=== PATIENT | female | born 2000 | race Caucasian/White ===

== ENCOUNTER 2018-12-14 17:38 | Emergency (ER) | payer MEDICAID ==
[2018-12-14 17:52] VITALS: O2SAT 100
[2018-12-14 19:02] LABS: Appearance SLIGHTLY CLOUDY (CLEAR); Bacteria RARE /HPF (NEGATIVE); Bilirubin NEGATIVE (NEGATIVE); Blood NEGATIVE Ery/ul (0-5); Epithelial Cells RARE /HPF (FEW); Glucose NEGATIVE (NEGATIVE); Ketones NEGATIVE (NEGATIVE); Leukocyte Esterase TRACE (NEGATIVE); Mucus SLIGHT /HPF (NEGATIVE); Nitrite NEGATIVE (NEGATIVE); Protein,Urine Dip NEGATIVE (Negative); Specific Gravity 1.025 (1.005-1.025); Urobilinogen NEGATIVE mg/dL (0-1)
[2018-12-14 19:06] LABS: ALBUMIN 4.1 g/dL (3.5-5.0); ALKALINE PHOSPHATASE 53 U/L (38-126); AMYLASE 54 U/L (30-110); ANION GAP 12.3 MEQ/L (5-15); BLOOD UREA NITROGEN 19 mg/dL (7-17); CHLORIDE 103 mmol/L (98-107); Calcium 9.2 mg/dL (8.4-10.2); Carbon Dioxide 26 mmol/L (22-30); Creatinine 1 0.88 mg/dL (0.52-1.04); Glucose 78 mg/dL (74-106); LIPASE 138 U/L (23-300); Potassium 3.9 mmol/L (3.5-5.1); SGOT/AST 24 U/L (14-36); SGPT/ALT 18 U/L (0-35); SODIUM 137 mmol/L (137-145); Total Protein 7.4 g/dL (6.3-8.2)
[2018-12-14 19:09] LABS: BASOPHIL % 0.5 % (0.0-0.4); Basophil (Absolute #) 0.04 (0-0.4); Eosinophil % 3.6 % (0.00-5.0); Eosinophil (Absolute #) 0.28 (0-0.5); Granulocytes % 62.4 % (36.0-66.0); Hematocrit 36.1 % (35-47); Hemoglobin 11.8 gm/dl (12.0-16.0); Lymphocyte (Absolute #) 1.89 (1.0-4.6); Lymphocytes % 24.5 % (24.0-44.0); Mean Cell Volume 83.8 fl (78-100); Mean Corpuscular Hgb Concent. 32.7 g/dl (32-36); Mean Platelet Volume 10.3 fl (6-9.5); Monocyte (Absolute #) 0.69 (0.0-1.3); Platelet Count 293 K/mm3 (150-450); Red Blood Count 4.31 M/mm3 (4.1-5.4); Red Cell Distribution Width 16.1 % (11.5-14.0); White Blood Count 7.7 K/mm3 (4.0-10.5)
[2018-12-14 19:10] LABS: Mean Corpuscular Hemoglobin 27.3 pg (26-32)
--- NOTE | 2018-12-14 19:20 | ERPHSYRPT ---
- History of Present Illness Time Seen by Provider: 12/14/18 19:00 Historian: patient Exam Limitations: no limitations Patient Subjective Stated Complaint: Pt states "I took a home test and it was positive and I have been having abdominal cramping since last and I was just wondering what was goning on." Triage Nursing Assessment: Pt presented through the front, alert and orietned X 3, skin pwd. Pt ambulates with an upright steady gait, able to speak in clear full sentences PT in no apparent respiratory distress. Physician History: 18 y/o white female on no meds and has nkda presents with intermittent, mild generalized abd pain. pt took a test 2 weeks ago and it was positive. pts last menstrual period ended 11/17/18. pt denies vaginal bleeding and denies flanik pain Timing/Duration: week(s) (2) Activities at Onset: none Quality: pressure Abdominal Pain Onset Location: generalized abdomen Pain Radiation: no radiation Severity of Pain-Max: mild Severity of Pain-Current: none Modifying Factors: Improves With: nothing Associated Symptoms: denies symptoms, No back, No chest pain, No loss of appetite, No nausea, No vomiting Previous symptoms: no prior history Allergies/Adverse Reactions: No Known Drug Allergies Allergy (Unverified 12/14/18 17:52) Hx Tetanus, Diphtheria Vaccination/Date Given: No Hx Influenza Vaccination/Date Given: No Hx Pneumococcal Vaccination/Date Given: No Immunizations Up to Date: Yes - Review of Systems Constitutional: No Symptoms Eyes: No Symptoms Ears, Nose, & Throat: No Symptoms Respiratory: No Symptoms Cardiac: No Symptoms Abdominal/Gastrointestinal: Abdominal Pain (mild generalized) Genitourinary Symptoms: No Symptoms Musculoskeletal: No Symptoms Skin: No Symptoms Neurological: No Symptoms Psychological: No Symptoms Endocrine: No Symptoms Hematologic/Lymphatic: No Symptoms Immunological/Allergic: No Symptoms All Other Systems: Reviewed and Negative - Past Medical History Pertinent Past Medical History: No Neurological History: No Pertinent History ENT History: No Pertinent History Cardiac History: No Pertinent History Respiratory History: No Pertinent History Endocrine Medical History: No Pertinent History Musculoskeletal History: No Pertinent History GI Medical History: No Pertinent History History: No Pertinent History Psycho-Social History: No Pertinent History Female Reproductive Disorders: No Pertinent History - Past Surgical History Past Surgical History: No Neuro Surgical History: No Pertinent History Cardiac: No Pertinent History Respiratory: No Pertinent History Gastrointestinal: No Pertinent History Genitourinary: No Pertinent History Musculoskeletal: No Pertinent History Female Surgical History: No Pertinent History - Social History Smoking Status: Former smoker Exposure to second hand smoke: Yes Drug Use: none Patient Lives Alone: No - Female History Hx Last Menstrual Period: 11/17/2018 Hx Now: Yes - Nursing Vital Signs Nursing Vital Signs: Initial Vital Signs Temperature 98.4 F 12/14/18 17:47 Pulse Rate 90 12/14/18 17:47 Respiratory Rate 16 12/14/18 17:47 Blood Pressure 142/72 12/14/18 17:47 O2 Sat by Pulse Oximetry 100 12/14/18 17:47 Pain Scale Pain Intensity 0 - Physical Exam General Appearance: no apparent distress Eye Exam: PERRL/EOMI, eyes nml inspection Ears, Nose, Throat Exam: normal ENT inspection, moist mucous membranes Neck Exam: normal inspection, non-tender, supple, full range of motion Respiratory Exam: normal breath sounds, lungs clear, airway intact, No chest tenderness, No respiratory distress Cardiovascular Exam: regular rate/rhythm, normal heart sounds, normal peripheral pulses Gastrointestinal/Abdomen Exam: soft, normal bowel sounds, No tenderness, No guarding, No other Pelvic Exam: not done Rectal Exam: not done Back Exam: normal inspection, normal range of motion, No CVA tenderness, No vertebral tenderness Extremity Exam: normal inspection, normal range of motion, pelvis stable Neurologic Exam: alert, oriented x 3, cooperative, stucco laborer II-XII nml as tested, normal mood/affect, nml cerebellar function, nml station & gait Skin Exam: normal color, warm, dry Lymphatic Exam: No adenopathy SpO2 Interpretation: normal SpO2: 100 O2 Delivery: Room Air - Course Nursing assessment & vital signs reviewed: Yes Ordered Tests: Active Orders 24 hr Category Date Time Status IV Insertion STAT Care 12/14/18 19:03 Active AMYLASE Stat Lab 12/14/18 18:45 Completed CBC W DIFF Stat Lab 12/14/18 18:45 Completed CMP Stat Lab 12/14/18 18:45 Completed HCG QUALITATIVE,SERUM Stat Lab 12/14/18 18:45 Completed LIPASE Stat Lab 12/14/18 18:45 Completed UA W/RFX UR CULTURE Stat Lab 12/14/18 18:34 Completed Lab/Rad Data: Laboratory Result Diagrams 12/14/18 18:45 12/14/18 18:45 Laboratory Results 12/14/18 12/14/18 12/14/18 Range/Units 18:45 18:45 18:45 WBC 7.7 (4.0-10.5) K/mm3 RBC 4.31 (4.1-5.4) M/mm3 Hgb 11.8 L (12.0-16.0) gm/dl Hct 36.1 (35-47) % MCV 83.8 (78-100) fl MCH 27.3 (26-32) pg MCHC 32.7 (32-36) g/dl RDW 16.1 H (11.5-14.0) % Plt Count 293 (150-450) K/mm3 MPV 10.3 H (6-9.5) fl Gran % 62.4 (36.0-66.0) % Eos # (Auto) 0.28 (0-0.5) Absolute Lymphs (auto) 1.89 (1.0-4.6) Absolute Monos (auto) 0.69 (0.0-1.3) Lymphocytes % 24.5 (24.0-44.0) % Monocytes % 9.0 (0.0-12.0) % Eosinophils % 3.6 (0.00-5.0) % Basophils % 0.5 (0.0-0.4) % Absolute Granulocytes 4.80 (1.4-6.9) Basophils # 0.04 (0-0.4) Sodium 137 (137-145) mmol/L Potassium 3.9 (3.5-5.1) mmol/L Chloride 103 (98-107) mmol/L Carbon Dioxide 26 (22-30) mmol/L Anion Gap 12.3 (5-15) MEQ/L BUN 19 H (7-17) mg/dL Creatinine 0.88 (0.52-1.04) mg/dL Estimated GFR > 60.0 ML/MIN Glucose 78 (74-106) mg/dL Calcium 9.2 (8.4-10.2) mg/dL Total Bilirubin 0.40 (0.2-1.3) mg/dL AST 24 (14-36) U/L ALT 18 (0-35) U/L Alkaline Phosphatase 53 (38-126) U/L Serum Total Protein 7.4 (6.3-8.2) g/dL Albumin 4.1 (3.5-5.0) g/dL Amylase 54 (30-110) U/L Lipase 138 (23-300) U/L Serum , Qual POSITIVE (Negative) Urine Color (YELLOW) Urine Appearance (CLEAR) Urine pH (5-6) Ur Specific Tripp (1.005-1.025) Urine Protein (Negative) Urine Ketones (NEGATIVE) Urine Blood (0-5) Jasiel/ul Urine Nitrite (NEGATIVE) Urine Bilirubin (NEGATIVE) Urine Urobilinogen (0-1) mg/dL Ur Leukocyte Esterase (NEGATIVE) Urine WBC (Auto) (0-5) /HPF Urine RBC (Auto) (0-2) /HPF U Epithel Cells (Auto) (FEW) /HPF Urine Bacteria (Auto) (NEGATIVE) /HPF Urine Mucus (Auto) (NEGATIVE) /HPF Urine Culture Reflexed (NO) Urine Glucose (NEGATIVE) mg/dL 12/14/18 Range/Units 18:34 WBC (4.0-10.5) K/mm3 RBC (4.1-5.4) M/mm3 Hgb (12.0-16.0) gm/dl Hct (35-47) % MCV (78-100) fl MCH (26-32) pg MCHC (32-36) g/dl RDW (11.5-14.0) % Plt Count (150-450) K/mm3 MPV (6-9.5) fl Gran % (36.0-66.0) % Eos # (Auto) (0-0.5) Absolute Lymphs (auto) (1.0-4.6) Absolute Monos (auto) (0.0-1.3) Lymphocytes % (24.0-44.0) % Monocytes % (0.0-12.0) % Eosinophils % (0.00-5.0) % Basophils % (0.0-0.4) % Absolute Granulocytes (1.4-6.9) Basophils # (0-0.4) Sodium (137-145) mmol/L Potassium (3.5-5.1) mmol/L Chloride (98-107) mmol/L Carbon Dioxide (22-30) mmol/L Anion Gap (5-15) MEQ/L BUN (7-17) mg/dL Creatinine (0.52-1.04) mg/dL Estimated GFR ML/MIN Glucose (74-106) mg/dL Calcium (8.4-10.2) mg/dL Total Bilirubin (0.2-1.3) mg/dL AST (14-36) U/L ALT (0-35) U/L Alkaline Phosphatase (38-126) U/L Serum Total Protein (6.3-8.2) g/dL Albumin (3.5-5.0) g/dL Amylase (30-110) U/L Lipase (23-300) U/L Serum , Qual (Negative) Urine Color YELLOW (YELLOW) Urine Appearance SLIGHTLY CLOUDY (CLEAR) Urine pH 6.0 (5-6) Ur Specific Tripp 1.025 (1.005-1.025) Urine Protein NEGATIVE (Negative) Urine Ketones NEGATIVE (NEGATIVE) Urine Blood NEGATIVE (0-5) Jasiel/ul Urine Nitrite NEGATIVE (NEGATIVE) Urine Bilirubin NEGATIVE (NEGATIVE) Urine Urobilinogen NEGATIVE (0-1) mg/dL Ur Leukocyte Esterase TRACE (NEGATIVE) Urine WBC (Auto) 6-10 (0-5) /HPF Urine RBC (Auto) NONE (0-2) /HPF U Epithel Cells (Auto) RARE (FEW) /HPF Urine Bacteria (Auto) RARE (NEGATIVE) /HPF Urine Mucus (Auto) SLIGHT (NEGATIVE) /HPF Urine Culture Reflexed NO (NO) Urine Glucose NEGATIVE (NEGATIVE) mg/dL - Progress Progress: unchanged Counseled pt/family regarding: lab results, diagnosis, need for follow-up - Departure Departure Disposition: Home Clinical Impression: UTI (urinary tract infection) during Condition: Stable Critical Care Time: No Referrals: DOCTOR,NO FAMILY [Primary Care Provider] - Additional Instructions: drink plenty of fluids. use tylenol for pain. follow up with primary doctor and program arranger as needed Prescriptions: Cephalexin Mh 500 mg [Keflex 500 mg] 500 mg PO TID #21 capsule
[2018-12-14 19:50] VITALS: BP 122/70; PULSE 80
== END 2018-12-14 19:57 | disposition home or self-care (01) ==
LOC: ED 17:38
DX: O23.41 Unspecified infection of urinary tract in pregnancy, first trimester (principal)
CPT/HCPCS: 36000; 36415; 80053; 81001; 81025; 82150; 83690; 85025; 99284

== ENCOUNTER 2019-08-03 11:23 | Observation (INO) | payer OTHER ==
[2019-08-03 11:57] VITALS: BP 146/86; PULSE 95
== END 2019-08-03 12:23 | disposition home or self-care (01) ==
LOC: OB 11:23
PROVIDERS: ADMIT Family Medicine; ATTEND Family Medicine
DX: Z34.03 Encounter for supervision of normal first pregnancy, third trimester (principal)
CPT/HCPCS: 36415; 59025; 80053; 81003; 84550; 85025; G0378

== ENCOUNTER 2019-08-07 15:53 | Observation (INO) | payer OTHER ==
[2019-08-07 16:23] VITALS: BP 130/81; PULSE 93
== END 2019-08-07 16:31 | disposition home or self-care (01) ==
LOC: OB 15:53
PROVIDERS: ADMIT Family Medicine; ATTEND Family Medicine
DX: Z34.03 Encounter for supervision of normal first pregnancy, third trimester (principal)
CPT/HCPCS: 59025; G0378

== ENCOUNTER 2019-08-10 13:21 | Observation (INO) | payer OTHER ==
[2019-08-10 13:49] LABS: Absolute Neutrophil Ct (ANC) 8.19 (1.4-6.9); BASOPHIL % 0.3 % (0.0-0.4); Basophil (Absolute #) 0.03 (0-0.4); Eosinophil % 3.5 % (0.00-5.0); Eosinophil (Absolute #) 0.41 (0-0.5); Hemoglobin 13.9 gm/dl (12.0-16.0); Lymphocytes % 12.9 % (24.0-44.0); Mean Cell Volume 90.9 fl (78-100); Mean Corpuscular Hemoglobin 30.8 pg (26-32); Mean Corpuscular Hgb Concent. 33.9 g/dl (32-36); Mean Platelet Volume 10.7 fl (7.5-11.0); Monocyte (Absolute #) 1.47 (0.0-1.3); Monocytes % 12.7 % (0.0-12.0); Neutrophil % 70.6 % (36.0-66.0); Platelet Count 223 K/mm3 (150-450); Red Blood Count 4.51 M/mm3 (4.1-5.4); Red Cell Distribution Width 14.2 % (11.5-14.0); White Blood Count 11.6 K/mm3 (4.0-10.5)
[2019-08-10 14:04] LABS: ALBUMIN 3.5 g/dL (3.5-5.0); ALKALINE PHOSPHATASE 162 U/L (38-126); ANION GAP 12.5 MEQ/L (5-15); BLOOD UREA NITROGEN 10 mg/dL (7-17); CHLORIDE 106 mmol/L (98-107); Carbon Dioxide 20 mmol/L (22-30); Creatinine 1 0.51 mg/dL (0.52-1.04); Glucose 68 mg/dL (74-106); Potassium 4.2 mmol/L (3.5-5.1); SGOT/AST 28 U/L (14-36); SGPT/ALT 17 U/L (0-35); SODIUM 135 mmol/L (137-145); Total Protein 6.9 g/dL (6.3-8.2)
[2019-08-10 14:05] VITALS: BP 133/82; O2SAT 97
[2019-08-10 18:08] VITALS: PULSE 98
== END 2019-08-10 17:10 | disposition home or self-care (01) ==
LOC: OB 13:21
PROVIDERS: ADMIT Family Medicine; ATTEND Family Medicine
DX: Z34.03 Encounter for supervision of normal first pregnancy, third trimester (principal)
CPT/HCPCS: 36415; 59025; 80053; 84550; 85025; G0378

== ENCOUNTER 2019-08-14 18:02 | Observation (INO) | payer OTHER ==
[2019-08-14 18:56] VITALS: BP 137/85; PULSE 99
== END 2019-08-14 18:45 | disposition home or self-care (01) ==
LOC: OB 18:02
PROVIDERS: ADMIT Family Medicine; ATTEND Family Medicine
DX: Z34.03 Encounter for supervision of normal first pregnancy, third trimester (principal)

== ENCOUNTER 2019-08-17 08:23 | Inpatient (IN) | payer BC, OTHER ==
[2019-08-17] MEDS ORDERED: BRETHINE 1 MG/ML SQ PRN (15:36)
[2019-08-17] MEDS ORDERED: XYLOCAINE 1% HCL 20 ML MDV IJ PRN (15:51)
[2019-08-17] MEDS ORDERED: Nubain 10 MG/ML IV PRN (15:51)
[2019-08-17] MEDS ORDERED: Zofran 4 MG/2 ML VIAL IV PRN (15:51)
[2019-08-17] MEDS ORDERED: Phenergan 25 MG INJ IV PRN (15:51)
[2019-08-17] MEDS ORDERED: STADOL 2 MG IV PRN (15:51)
[2019-08-17] MEDS ORDERED: PITOCIN 30 UNITS/ LR 500 ML 500 ML IV SCH ×2 (16:00)
[2019-08-17 18:53] LABS: Absolute Neutrophil Ct (ANC) 11.16 (1.4-6.9); BASOPHIL % 0.1 % (0.0-0.4); Basophil (Absolute #) 0.02 (0-0.4); Eosinophil % 2.7 % (0.00-5.0); Eosinophil (Absolute #) 0.41 (0-0.5); Hematocrit 40.1 % (35-47); Hemoglobin 13.4 gm/dl (12.0-16.0); Lymphocyte (Absolute #) 2.57 (1.0-4.6); Lymphocytes % 16.9 % (24.0-44.0); Mean Cell Volume 90.7 fl (78-100); Mean Corpuscular Hemoglobin 30.3 pg (26-32); Mean Corpuscular Hgb Concent. 33.4 g/dl (32-36); Monocyte (Absolute #) 1.05 (0.0-1.3); Monocytes % 6.9 % (0.0-12.0); Neutrophil % 73.4 % (36.0-66.0); Platelet Count 272 K/mm3 (150-450); Red Blood Count 4.42 M/mm3 (4.1-5.4); Red Cell Distribution Width 14.1 % (11.5-14.0); White Blood Count 15.2 K/mm3 (4.0-10.5)
[2019-08-17 19:11] LABS: Amphetamine,Urine NEGATIVE (NEGATIVE); Barbiturate,Urine NEGATIVE (NEGATIVE); Benzodiazepine,Urine NEGATIVE (NEGATIVE); Cocaine,Urine NEGATIVE (NEGATIVE); Methadone,Urine NEGATIVE (NEGATIVE); Opiate,Urine NEGATIVE (NEGATIVE); PCP,Urine NEGATIVE (NEGATIVE); THC,Urine NEGATIVE (NEGATIVE)
[2019-08-17] MEDS: TYLENOL EXTRA STRENGTH 500 MG PO PRN (21:36)
[2019-08-17] MEDS ORDERED: Cervidil 10 MG VAG SCH (22:00)
[2019-08-18] MEDS: Lactated Ringers 1,000 ML IV SCH ×4 (02:11→14:19)
[2019-08-18 09:17] LABS: ALBUMIN 3.4 g/dL (3.5-5.0); ALKALINE PHOSPHATASE 168 U/L (38-126); BLOOD UREA NITROGEN 12 mg/dL (7-17); CHLORIDE 107 mmol/L (98-107); Carbon Dioxide 22 mmol/L (22-30); Creatinine 1 0.55 mg/dL (0.52-1.04); Glucose 85 mg/dL (74-106); Potassium 3.9 mmol/L (3.5-5.1); SGOT/AST 26 U/L (14-36); SGPT/ALT 15 U/L (0-35); SODIUM 138 mmol/L (137-145); Total Protein 6.4 g/dL (6.3-8.2)
[2019-08-18] MEDS ORDERED: OB EPIDURAL NAROPIN/SUFENTANIL IN NACL EPIDURAL PRN (11:44)
[2019-08-18] MEDS ORDERED: Ephedrine Sulfate 50 MG/ML IV PRN (11:44)
[2019-08-18] MEDS ORDERED: Lactated Ringers 1,000 ML IV ONE (11:44)
[2019-08-18] MEDS ORDERED: BICITRA 30 ML CUP PO SCH (13:00)
[2019-08-18] MEDS ORDERED: Reglan 10 MG/2 ML IV SCH (13:00)
[2019-08-18] MEDS ORDERED: CEFAZOLIN 2 GM-D5W BAG** 2 GM/50 ML ML IV SCH (13:00)
[2019-08-18] MEDS ORDERED: Pepcid 20 MG VIAL IV SCH (13:00)
[2019-08-18 13:11] LABS: INR 0.97 (0.8-3.0); PROTIME 10.9 SECONDS (9.95-12.35)
[2019-08-18 13:14] LABS: PTT 28.8 SECONDS (25.3-37.0)
[2019-08-18] MEDS ORDERED: Dulcolax 10 MG SUPP PR PRN (18:32)
[2019-08-18] MEDS ORDERED: LANSINOH 40 GM TOP PRN (18:32)
[2019-08-18] MEDS ORDERED: Dermoplast Spray TP PRN (18:32)
[2019-08-18] MEDS ORDERED: Restoril 15 MG PO PRN (18:32)
[2019-08-18] MEDS ORDERED: Mylicon 80MG PO PRN (18:32)
[2019-08-18] MEDS ORDERED: Ambien 10 MG PO PRN (18:32)
[2019-08-18] MEDS ORDERED: NORCO 5/325 MG PO PRN (18:32)
[2019-08-18] MEDS ORDERED: CORTISONE 1% CREAM TP PRN (18:32)
[2019-08-18] MEDS: TUCKS TP PRN (19:56)
[2019-08-18] MEDS: MOTRIN 400 MG PO PRN (22:16)
[2019-08-18] MEDS: Colace 100 MG PO SCH (22:17)
[2019-08-19] MEDS: MOTRIN 400 MG PO PRN ×2 (05:01→20:23)
[2019-08-19 05:28] LABS: Absolute Neutrophil Ct (ANC) 12.63 (1.4-6.9); BASOPHIL % 0.1 % (0.0-0.4); Basophil (Absolute #) 0.02 (0-0.4); Eosinophil % 0.5 % (0.00-5.0); Eosinophil (Absolute #) 0.09 (0-0.5); Hematocrit 33.7 % (35-47); Lymphocyte (Absolute #) 2.85 (1.0-4.6); Lymphocytes % 16.7 % (24.0-44.0); Mean Cell Volume 92.6 fl (78-100); Mean Corpuscular Hemoglobin 30.2 pg (26-32); Mean Corpuscular Hgb Concent. 32.6 g/dl (32-36); Mean Platelet Volume 10.2 fl (7.5-11.0); Monocyte (Absolute #) 1.47 (0.0-1.3); Monocytes % 8.6 % (0.0-12.0); Neutrophil % 74.1 % (36.0-66.0); Platelet Count 209 K/mm3 (150-450); Red Blood Count 3.64 M/mm3 (4.1-5.4); Red Cell Distribution Width 14.8 % (11.5-14.0); White Blood Count 17.1 K/mm3 (4.0-10.5)
[2019-08-19] MEDS: FERREX 150 PO SCH (09:21)
[2019-08-19] MEDS: Colace 100 MG PO SCH ×2 (09:21→20:24)
[2019-08-19] MEDS: TUCKS TP PRN (17:38)
[2019-08-20] MEDS: MOTRIN 400 MG PO PRN (02:29)
[2019-08-20] MEDS ORDERED: M-M-R II Vaccine With Diluent SQ ONE (08:00)
[2019-08-20] MEDS: FERREX 150 PO SCH (08:44)
[2019-08-20] MEDS: TYLENOL EXTRA STRENGTH 500 MG PO PRN (08:44)
[2019-08-20] MEDS: Colace 100 MG PO SCH ×2 (08:44→21:10)
[2019-08-20 22:54] VITALS: O2SAT 98
--- NOTE | 2019-08-21 08:12 | PCM.DS ---
Discharge Summary Date of Admission: 08/18/19 08:23 Admitting Physician: PRASAD ORTIZ Consults: Consults on Case 08/18/19 12:56 Notify Physician OF ADMISSION Primary Care Provider: PRASAD ORTIZ Allergies Allergies No Known Drug Allergies Allergy (Verified 08/10/19 13:38) Hospital Summary - Hospital Course Hospital Course: Pt came in as 19 yo pt of mine at 39w for induction of labor due to induced hypertension. She received cervadil, after which baby had some variable decelerations, then AROM was done the next morning (clear fluid) and she dilated to 4cm; after her epidural she dilated quickly to 9cm and baby had multiple decels into the 60s. was called but then baby's HR stabilized and pt was found to be 9cm. She did finally deliver vaginally after 3hr second stage (however, initially her contractions were spaced quite far apart - after pitocin started and epidural turned down, pt pushed much more effectively and delivered). Apgars 8 at 1 min and 9 at 5 min. She has been up out of bed without dizziness and bleeding has been normal. She has been educated by the nurses regarding baby care. Bottlefeeding. Needs f/u with me in 4-6 wks. - Vitals & Intake/Output Vital Signs: Vital Signs Temperature 98.2 F 08/21/19 04:15 Pulse Rate 86 08/21/19 04:15 Respiratory Rate 18 08/20/19 21:00 Blood Pressure 132/64 08/21/19 04:15 O2 Sat by Pulse Oximetry 98 08/20/19 21:00 Intake & Output: Intake & Output 08/18/19 08/19/19 08/20/19 08/21/19 11:59 11:59 11:59 11:59 Intake Total 1533 4896 950 Output Total 4 Balance 1533 4892 950 Weight 125.645 kg - Lab Result Diagrams: 08/19/19 05:25 08/18/19 08:45 - Procedures and Test Procedures and Tests throughout Hospitalization: Therapy Orders & Screens 08/18/19 17:50 Standby Routine Comment: Diagnosis: FTIUP Discharge Exam General Appearance: no apparent distress, alert, obese Neurologic Exam: oriented x 3, cooperative Eye Exam: eyes nml inspection Ears, Nose, Throat Exam: moist mucous membranes Neck Exam: normal inspection Respiratory Exam: normal breath sounds, lungs clear, No crackles/rales, No rhonchi, No wheezing Cardiovascular Exam: regular rate/rhythm, normal heart sounds, No murmur Gastrointestinal/Abdomen Exam: soft, normal bowel sounds, other (fundus firm under umbilicus), No tenderness, No distention Extremity Exam: pedal edema, swelling (1+ pretibial edema bilat) Skin Exam: normal color, warm, dry, No rash Final Diagnosis/Problem List - Final Discharge Diagnosis/Problem (1) Spontaneous vaginal delivery Current Visit: Yes Status: Acute Assessment & Plan: Doing well, PPD #3, home today with baby. Code(s): O80 - ENCOUNTER FOR FULL-TERM UNCOMPLICATED DELIVERY (2) Anemia Current Visit: Yes Status: Acute Assessment & Plan: Home on iron x 1 mo. Code(s): D64.9 - ANEMIA, UNSPECIFIED (3) induced hypertension Current Visit: Yes Status: Resolved Assessment & Plan: Most BP 120s-130s systolic here, just one of 141 systolic. Had a few in the 90s diastolic when in labor, but normal since delivery. No antihypertensives given. Code(s): O13.9 - GESTATIONAL HTN W/O SIGNIFICANT PROTEINURIA, UNSP TRIMESTER - Discharge Disposition: Home, Self-Care Condition: Good Prescriptions: New Docusate Sodium 100 mg [Colace 100 MG] 100 mg PO BID capsule Ferrous Sulfate 325 mg [Feosol 325 mg] 325 mg PO DAILY #30 tablet Ibuprofen 800 mg PO TID PRN #35 tablet PRN Reason: Pain Continue Vits W-Ca,Fe,FA(<1Mg) [] 1 tab PO DAILY Follow up with: PRASAD ORTIZ [Primary Care Provider] - 1 Week
[2019-08-21 08:28] VITALS: BP 136/73; PULSE 79
[2019-08-21] MEDS: FERREX 150 PO SCH (11:20)
[2019-08-21] MEDS: Colace 100 MG PO SCH (11:20)
[2019-08-21] MEDS: TUCKS TP PRN (11:20)
== END 2019-08-21 13:00 | disposition home or self-care (01) | DRG 807 ==
LOC: OB 08:23 → OBSVTOIN 08-18 08:23
PROVIDERS: ADMIT Family Medicine; ATTEND Family Medicine
PROC: 10E0XZZ Delivery of Products of Conception, External Approach (ICD-10-PCS; principal; 2019-08-18)
PROC: 0KQM0ZZ Repair Perineum Muscle, Open Approach (ICD-10-PCS; 2019-08-18)
DX: O13.4 Gestational [pregnancy-induced] hypertension without significant proteinuria, complicating childbirth (principal); Z37.0 Single live birth; O70.1 Second degree perineal laceration during delivery; Z3A.39 39 weeks gestation of pregnancy; D64.9 Anemia, unspecified
CPT/HCPCS: 36415; 80053; 80307; 81003; 85025; 85610; 85730; 87340; 90471; 90707; 94799; G0378; J2590; J2795; A9270-GY

== ENCOUNTER 2019-08-24 09:18 | Emergency (ER) | payer BC, OTHER ==
[2019-08-24 09:50] VITALS: BP 135/84; O2SAT 95
--- NOTE | 2019-08-24 10:09 | ERPHSYRPT ---
- History of Present Illness Historian: patient Exam Limitations: no limitations Patient Subjective Stated Complaint: states began having lower abd pain this am after getting out of bed. states it is sharp. denies any vomiting or diarrhea. denies any urinary symptoms. normal bm yesterday. had uneventful full term vaginal delivery with epidural on aug 18. grav 1 and para 1 Triage Nursing Assessment: ambulated to room per self. skin w/d, color normal. resp easy. abd soft, tender in lower abd. normal bowel sounds. Physician History: Patient is a 19-year-old female G1, P1 day 6 presents to our ED with complaints of crampy abdominal pain. Patient states pain had been moving around. Pain started the right upper quadrant. It radiated to the left upper quadrant. Pain intensity has been gradually decreasing. Upon nursing assessment pain was 2 out of 10. Pain is currently 0 out of 10. Patient is completely asymptomatic patient patient declined a work-up. Patient states "I prefer to go home". Mother at bedside. They are attributing patient's pain to "gas". Patient states that she will return if pain recurs. Patient advises that her was uncomplicated. Labor was uncomplicated. was via spontaneous vaginal delivery. Timing/Duration: today Activities at Onset: none Quality: sharpness Abdominal Pain Onset Location: RUQ, LUQ Pain Radiation: no radiation Severity of Pain-Max: moderate Severity of Pain-Current: none Modifying Factors: Improves With: nothing Associated Symptoms: No back, No chest pain, No diaphoresis, No diarrhea, No fever/chills, No fatigue, No headache, No heartburn, No loss of appetite, No nausea, No neck pain, No shortness of breath, No syncope, No vomiting, No weakness Previous symptoms: recent hospitalization Allergies/Adverse Reactions: No Known Drug Allergies Allergy (Verified 08/24/19 09:50) Hx Tetanus, Diphtheria Vaccination/Date Given: Yes Hx Influenza Vaccination/Date Given: Yes Hx Pneumococcal Vaccination/Date Given: No - Review of Systems Constitutional: No Fever, No Chills Eyes: No Symptoms, Discharge, Eye Pain Ears, Nose, & Throat: No Symptoms Respiratory: No Symptoms, Dyspnea on Exertion (MOBLEY), No Cough, No Dyspnea Cardiac: No Symptoms, No Chest Pain, No Edema, No Syncope Abdominal/Gastrointestinal: No Symptoms (Abdominal pain completely resolved.), No Abdominal Pain, No Nausea, No Vomiting, No Diarrhea Genitourinary Symptoms: No Dysuria Musculoskeletal: No Symptoms, No Back Pain, No Neck Pain Skin: No Symptoms, No Rash Neurological: No Symptoms, No Dizziness, No Focal Weakness, No Sensory Changes Psychological: No Symptoms Endocrine: No Symptoms All Other Systems: Reviewed and Negative - Past Medical History Pertinent Past Medical History: No Neurological History: No Pertinent History ENT History: No Pertinent History Cardiac History: No Pertinent History Respiratory History: No Pertinent History Endocrine Medical History: No Pertinent History Musculoskeletal History: No Pertinent History GI Medical History: No Pertinent History, Liver Cancer History: No Pertinent History Psycho-Social History: No Pertinent History Female Reproductive Disorders: No Pertinent History - Past Surgical History Past Surgical History: No Neuro Surgical History: No Pertinent History Cardiac: No Pertinent History Respiratory: No Pertinent History Gastrointestinal: No Pertinent History Genitourinary: No Pertinent History Musculoskeletal: No Pertinent History Female Surgical History: No Pertinent History - Social History Smoking Status: Never smoker Exposure to second hand smoke: No Drug Use: none Patient Lives Alone: No - Female History Hx Now: No - Nursing Vital Signs Nursing Vital Signs: Initial Vital Signs Temperature 97.7 F 08/24/19 09:22 Pulse Rate 86 08/24/19 09:22 Respiratory Rate 16 08/24/19 09:22 Blood Pressure 135/84 08/24/19 09:22 O2 Sat by Pulse Oximetry 95 08/24/19 09:22 Pain Scale Pain Intensity 2 - Physical Exam General Appearance: no apparent distress, alert Eye Exam: PERRL/EOMI, eyes nml inspection Ears, Nose, Throat Exam: normal ENT inspection, pharynx normal, moist mucous membranes Neck Exam: normal inspection, non-tender, supple, full range of motion Respiratory Exam: normal breath sounds, lungs clear, No respiratory distress Cardiovascular Exam: regular rate/rhythm, normal heart sounds Gastrointestinal/Abdomen Exam: soft, No tenderness, No mass Pelvic Exam: not done Rectal Exam: deferred Back Exam: normal inspection, normal range of motion, No CVA tenderness, No vertebral tenderness Extremity Exam: normal inspection, normal range of motion, pelvis stable Neurologic Exam: alert, oriented x 3, cooperative, normal mood/affect, nml cerebellar function, sensation nml, No motor deficits Skin Exam: normal color, warm, dry SpO2 Interpretation: normal SpO2: 95 O2 Delivery: Room Air - Course Nursing assessment & vital signs reviewed: Yes - Progress Progress: improved Progress Note: 08/24/19 10:08 Patient reassessed. She remains asymptomatic. Patient requesting discharge. Patient states he will return if symptoms recur. Discussed with : Other Counseled pt/family regarding: diagnosis, need for follow-up - Departure Departure Disposition: Home Clinical Impression: Abdominal pain Condition: Stable Critical Care Time: No Referrals: PRASAD ORTIZ [Primary Care Provider] - Additional Instructions: Patient has no urinary complaints. No frequency, no dysuria, no hematuria, patient declined UA.Discharge/Care Plan DAVID HURTADO was seen on 08/24/19 in the Emergency Room. The patient was counseled regarding Diagnosis,Lab results, Imaging studies, need for follow up and when to return to the Emergency Room. Prescriptions given: Discharge Note I have spoken with the patient and/or caregivers. I have explained the patient' s condition, diagnosis and treatment plan based on the information available to me at this time. I have answered the patient's and/or caregiver's questions and addressed any concerns. The patient and/or caregivers have as good understanding of the patient's diagnosis, condition and treatment plan as can be expected at this point. The vital signs have been stable. The patient's condition is stable and appropriate for discharge from the emergency department. The patient will pursue further outpatient evaluation with the primary care physician or other designated or consulting physician as outlined in the discharge instructions. The patient and/or caregivers are agreeable to this plan of care and follow-up instructions have been explained in detail. The patient and/or caregivers have received these instruction. The patient/and or caregivers are aware that any significant change in condition or worsening of symptoms should prompt an immediate return to this or the closest emergency department or call 911.
[2019-08-24 10:40] VITALS: PULSE 82
== END 2019-08-24 10:40 | disposition home or self-care (01) ==
LOC: ED 09:18
DX: R10.9 Unspecified abdominal pain (principal)
CPT/HCPCS: 99283